=== PATIENT | male | born 1970 | race Caucasian/White ===

== ENCOUNTER 2017-07-04 19:26 | Emergency (ER) | payer OTHER ==
[2017-07-04 19:43] VITALS: BMI 41.4
--- NOTE | 2017-07-04 21:26 | PDOC ---
History of Present Illness - General History Source: Patient Exam Limitations: No Limitations - History of Present Illness Initial Comments: 07/04/17 21:47 The patient is a 46 year old male with a significant past medical history of diabetes (not compliant with medication) who presents to the ED with complaints of abdominal cramping and lightheadedness. Patient reports a sudden onset of generalized abdominal cramping and lightheadedness with blurry vision earlier today. He also reports an increase in weight lost and urinary frequency over the past several weeks. Patient reports he has not followed up with his PMD in a long time. Denies recent travel. Denies chest pain or shortness of breath. Denies nausea, vomiting, or diarrhea. Denies dysuria or hematuria. Denies any other symptoms. <Prashant Wylie - Last Filed: 07/05/17 05:58> - General History Source: Patient <Khadar Christie - Last Filed: 07/05/17 19:50> - General Chief Complaint: Blood Sugar Problem Stated Complaint: BLOOD SUGAR PROBLEM Time Seen by Provider: 07/04/17 21:22 Past History <Prashant Wylie - Last Filed: 07/05/17 05:58> - Past Medical History Diabetes: Yes GI Disorders: Yes (Crohn's, colitis) - Surgical History Orthopedic Surgery: (bilateral knee laproscopy) - Psycho/Social/Smoking Cessation Hx Anxiety: No Suicidal Ideation: No Smoking History: Never smoked Have you smoked in the past 12 months: No Information on smoking cessation initiated: No Hx Alcohol Use: No Drug/Substance Use Hx: No Substance Use Type: None <Khadar Christie - Last Filed: 07/05/17 19:50> - Past Medical History Allergies/Adverse Reactions: Allergies Allergy/AdvReac Type Severity Reaction Status Date / Time No Known Allergies Allergy Verified 07/04/17 19:33 Home Medications: Ambulatory Orders Albuterol Sulfate Inhaler - [Ventolin HFA Inhaler -] 2 inh PO Q4H PRN #1 inh Review of Systems - Review of Systems Able to Perform ROS?: Yes Comments:: 07/04/17 21:48 CONSTITUTIONAL: No reported: Fever, Chills, Diaphoresis, Generalized Weakness, Malaise, Loss of Appetite HEENT: + blurry vision No reported: Rhinorrhea, Nasal Congestion, Throat Pain, Throat Swelling, Difficulty Swallowing, Mouth Swelling, Ear Pain, Eye Pain, CARDIOVASCULAR: No reported: Chest Pain, Syncope, Palpitations, Irregular Heart Rate, Lightheadedness, Peripheral Edema RESPIRATORY: No reported: Cough, Shortness of Breath, SOB with Exertion, Orthopnea, Wheezing , Stridor, Hemoptysis GASTROINTESTINAL: + abdominal pain No reported:Abdominal Distension, Nausea, Vomiting, Diarrhea, Constipation, Melena, Hematochezia GENITOURINARY: + frequency No reported: Dysuria, Urgency, Hesitancy, Flank Pain, Genital Pain MUSCULOSKELETAL: No reported: Myalgia, Arthralgia, Joint Swelling, Back pain, Neck Pain SKIN: No reported: Rash, Itching, Pallor HEMEATOLOGIC/IMMUNOLOGIC: No reported: Easy Bleeding, Easy Bruising, Lymphadenopathy, Frequent infections ENDOCRINE: + weight loss No reported: Unexplained Weight Gain, Heat Intolerance, Cold Intolerance NEUROLOGIC: + lightheadedness No reported: Headache, Focal Weakness, Paresthesias, Vertigo, Unsteady Gait, Seizure, Mental Status Changes, Incontinence PSYCHIATRIC: No reported: Anxiety, Depression All Other Systems: Reviewed and Negative <Prashant Wylie - Last Filed: 07/05/17 05:58> *Physical Exam - Vital Signs Last Vital Signs Temp Pulse Resp BP Pulse Ox 98.0 F 90 20 154/74 97 07/04/17 19:33 07/04/17 19:33 07/04/17 19:33 07/04/17 19:33 07/04/17 19:33 - Physical Exam Comments: 07/04/17 21:48 GENERAL: Well developed, well nourished. Awake and alert. No acute distress. HEENT: Normocephalic, atraumatic. PERRLA, EOMI. No conjunctival pallor. Sclera are non- icteric. Moist mucous membranes. Oropharynx is clear. NECK: Supple. Full ROM. No JVD. Carotid pulses 2+ and symmetric, without bruits. No thyromegaly. No lymphadenopathy. CARDIOVASCULAR: Regular rate and rhythm. No murmurs, rubs, or gallops. Distal pulses are 2+ and symmetric. PULMONARY: No evidence of respiratory distress. Lungs clear to auscultation bilaterally. No wheezing, rales or rhonchi. ABDOMINAL: Soft. Non-tender. Non-distended. No rebound or guarding. No organomegaly. Normoactive bowel sounds. MUSCULOSKELETAL Normal range of motion at all joints. No bony deformities or tenderness. No CVA tenderness. EXTREMITIES: No cyanosis. No clubbing. No edema. No calf tenderness. SKIN: Warm and dry. Normal capillary refill. No rashes. No jaundice. NEUROLOGICAL: Alert, awake, appropriate. Cranial nerves 2-12 intact. No deficits to light touch and temperature in face, upper extremities and lower extremities. No motor deficits in the in face, upper extremities and lower extremities. Normoreflexic in the upper and lower extremities. Normal speech. Toes are down- going bilaterally. Gait is normal without ataxia. PSYCHIATRIC: Cooperative. Good eye contact. Appropriate mood and affect. <Prashant Wylie - Last Filed: 07/05/17 05:58> - Vital Signs Last Vital Signs Temp Pulse Resp BP Pulse Ox 98.0 F 90 20 154/74 97 07/04/17 19:33 07/04/17 19:33 07/04/17 19:33 07/04/17 19:33 07/04/17 19:33 <Khadar Christie - Last Filed: 07/05/17 19:50> Heart Score/ECG Review #1 07/05/17 05:58 Vent. rate 68 bpm IL interval 142 ms QRS Duration 82 ms Normal sinus rhythm with sinus arrhythmia <Prashant Wylie - Last Filed: 07/05/17 05:58> ED Treatment Course - LABORATORY CBC & Chemistry Diagram: 07/04/17 21:30 07/04/17 21:30 <Prashant Wylie - Last Filed: 07/05/17 05:58> - LABORATORY CBC & Chemistry Diagram: 07/04/17 21:30 07/05/17 06:00 <Khadar Christie - Last Filed: 07/05/17 19:50> Medical Decision Making - Medical Decision Making 07/04/17 22:00 Head nurse approached me and informed that patient is very sad and is having suicidal thoughts. <Prashant Wylie - Last Filed: 07/05/17 05:58> - Medical Decision Making 07/05/17 05:36 Dr. Christie: The scribe's documentation has been prepared under my direction and personally reviewed by me in its entirery. I confirm that the note above accurately reflects all work, treatment, procedures, and medical decision making performed by me. It was reported earlier, that patient was having suicidal, homicidal thought. Psych consult call in the morning for evaluatio <Khadar Christie - Last Filed: 07/05/17 19:50> *DC/Admit/Observation/Transfer - Attestations Scribe Attestion: 07/04/17 21:48 Documentation prepared by Prashant Wylie, acting as medical insurance clerk for Khadar Christie MD <Prashant Wylie - Last Filed: 07/05/17 05:58> - Discharge Dispostion Admit: No <Khadar Christie - Last Filed: 07/05/17 19:50> Diagnosis at time of Disposition: Blood glucose elevated - Discharge Dispostion Disposition: HOME Condition at time of disposition: Stable - Patient Instructions Printed Discharge Instructions: DI for Hyperglycemia -- Adult Additional Instructions: Please follow up with a primary care physician within 2-3 days. Please take your diabetes medications in order to keep your blood glucose levels at lower. Please return to the emergency department if you had any chest pain, shortness of breath, weakness, dizziness, or any concerning symptoms.
[2017-07-04] MEDS ORDERED: SODIUM CHLORIDE 1,000 ML IV STA (21:27)
[2017-07-04 21:40] LABS: BASOPHIL 0.6 % (0-2.0); EOSINOPHIL 1.2 % (0-4.5); MCH 30.3 pg (25.7-33.7); MCHC 33.9 g/dl (32.0-35.9); MEAN CELL VOLUME 89.2 fl (80-96); MEAN PLT VOLUME 8.7 fl (7.5-11.1); NEUTROPHILS 54.7 % (42.8-82.8); PLATELET COUNT 273 K/MM3 (134-434); RDW 12.7 % (11.9-15.9); WHITE BLOOD COUNT 9.8 K/mm3 (4.0-10.0)
[2017-07-04 22:11] LABS: ALBUMIN 3.5 g/dl (3.4-5.0); AMYLASE 43 U/L (25-115); ANION GAP 8 (8-16); BILIRUBIN,TOTAL 1.3 mg/dL (0.2-1.0); CALCIUM 9.2 mg/dL (8.5-10.1); CO2 30 mmol/L (21-32); SGOT/AST 15 U/L (15-37); SGPT/ALT 29 U/L (12-78); TOT PROT 7.1 g/dl (6.4-8.2)
[2017-07-04 22:12] LABS: ALK PHOS 99 U/L (45-117)
[2017-07-04 22:18] LABS: GLUCOSE,RANDOM 308 mg/dL (74-106)
[2017-07-04 23:05] LABS: ACETONE SERUM NEGATIVE (NEGATIVE)
[2017-07-05 01:38] LABS: URINE APPEARANCE SLCLOUDY; URINE BILIRUBIN NEGATIVE (NEGATIVE); URINE BLOOD NEGATIVE (NEGATIVE); URINE COLOR YELLOW; URINE GLUCOSE (UA) 3+ (NEGATIVE); URINE KETONE TRACE (NEGATIVE); URINE LEUK ESTERASE TRACE (NEGATIVE); URINE NITRITE NEGATIVE (NEGATIVE); URINE PROTEIN NEGATIVE (NEGATIVE); URINE UROBILINOGEN NEGATIVE mg/dL (0.2-1.0)
[2017-07-05 01:46] LABS: URINE MARIJUANA THC NEGATIVE ng/ml (CUTOFF=50)
[2017-07-05 01:54] LABS: URINE BACTERIA FEW /hpf (NONE SEEN); URINE MUCUS RARE; URINE RBC 4 /hpf (0-3); URINE WBC 17 /hpf (3-5)
[2017-07-05] MEDS ORDERED: INSULIN REGULAR HUMAN 100 UNITS/ML *VIAL IVPUSH ONE (03:16)
[2017-07-05] MEDS ORDERED: INSULIN REGULAR HUMAN 100 UNITS/ML *VIAL ONE (03:40)
[2017-07-05 06:28] LABS: ANION GAP 7 (8-16); CALCIUM 8.5 mg/dL (8.5-10.1); CO2 30 mmol/L (21-32); CREATININE 0.7 mg/dL (0.7-1.3); GLUCOSE,RANDOM 282 mg/dL (74-106)
--- NOTE | 2017-07-05 08:40 | CON.PSY ---
Psychiatry Consult Chief Complaint: Patient vehemently denies that He wanted to kill his mom and kill himself. patient reports problems with his Fiance. No Psych history. 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 - Previous Psychiatric Treatment Outpatient: None Inpatient: None - Previous Substance Abuse Treatment Outpatient: None Inpatient: None - Allergies Allergies: Allergies Allergy/AdvReac Type Severity Reaction Status Date / Time No Known Allergies Allergy Verified 07/04/17 19:33 - Current Living Status Usual Living Arrangement: With Parent - Current Mental Status Evaluation Appearance: Well Groomed Attitude: Cooperative - Affect Affect: Full Range Appropriateness: Appropriate to Content - Mood Mood: Euthymic - Speech/Language Expressive: Coherent - Psychomotor Activity Psychomotor Activity: Normal - Thought Process Thought Process: Intact - Thought Content Hallucinations: Absent Delusions: Absent - Self Perception Self Perception: No Impairment - Cognition Attention: Alert Orientation: Time Memory, Immediate Recall: Intact Memory, Short Term: 3/3 Memory, Remote with Promptin/3 - Concentration Serial Sevens Intact: Yes Simple Calculations Intact: Yes - Abstraction Proverb Interpretation: Intact Judgement: Intact - Insight Insight: Intact - Impulse Control Impulse Control: Good Control - Suicidal Ideation Suicidal Ideation: No - Homicidal Ideation Homicidal Ideation: No Assessment/Plan 1) Patient is not suicidal or Homicidal at this time. 2) No evidence of any acute Psychiatric Disorder. 3) Discharge Patient when medically stable. 4) No Psychiatric follow up needed.
--- NOTE | 2017-07-05 09:13 | PDOC ---
*Physical Exam - Vital Signs Last Vital Signs Temp Pulse Resp BP Pulse Ox 98.3 F 67 16 110/63 97 07/05/17 03:20 07/05/17 03:20 07/05/17 03:20 07/05/17 03:20 07/05/17 07:22 ED Treatment Course - LABORATORY CBC & Chemistry Diagram: 07/04/17 21:30 07/05/17 06:00 - ADDITIONAL ORDERS Additional order review: Laboratory Results 07/05/17 07/05/17 07/05/17 06:00 03:14 01:29 Sodium 140 Potassium 4.1 Chloride 103 Carbon Dioxide 30 Anion Gap 7 L BUN 9 Creatinine 0.7 D Creat Clearance w eGFR POC Glucometer 300.41979 Random Glucose 282 H Calcium 8.5 Magnesium Total Bilirubin AST ALT Alkaline Phosphatase Total Protein Albumin Total Amylase Lipase Urine Color Urine Appearance Urine pH Urine Protein Urine Glucose (UA) Urine Ketones Urine Blood Urine Nitrite Urine Bilirubin Urine Urobilinogen Ur Leukocyte Esterase Urine RBC Urine WBC Ur Epithelial Cells Urine Bacteria Urine Mucus Opiates Screen Negative Methadone Screen Negative Barbiturate Screen Negative Phencyclidine Screen Negative Ur Amphetamines Screen Negative MDMA (Ecstasy) Screen Negative Benzodiazepines Screen Negative Cocaine Screen Positive U Marijuana (THC) Screen Negative Alcohol, Quantitative Acetone, Qual 07/05/17 07/04/17 07/04/17 01:29 22:57 21:30 Sodium 138 Potassium 4.2 Chloride 100 Carbon Dioxide 30 Anion Gap 8 BUN 9 Creatinine 1.0 Creat Clearance w eGFR > 60 POC Glucometer Random Glucose 308 H* D Calcium 9.2 Magnesium 2.0 Total Bilirubin 1.3 H D AST 15 D ALT 29 D Alkaline Phosphatase 99 D Total Protein 7.1 Albumin 3.5 Total Amylase 43 D Lipase 135 Urine Color Yellow Urine Appearance Slcloudy Urine pH 6.0 Urine Protein Negative Urine Glucose (UA) 3+ H Urine Ketones Trace H Urine Blood Negative Urine Nitrite Negative Urine Bilirubin Negative Urine Urobilinogen Negative Ur Leukocyte Esterase Trace Urine RBC 4 Urine WBC 17 Ur Epithelial Cells Rare Urine Bacteria Few Urine Mucus Rare Opiates Screen Methadone Screen Barbiturate Screen Phencyclidine Screen Ur Amphetamines Screen MDMA (Ecstasy) Screen Benzodiazepines Screen Cocaine Screen U Marijuana (THC) Screen Alcohol, Quantitative < 5.0 Acetone, Qual Negative 07/05/17 07/04/17 03:14 21:30 RBC 5.18 MCV 89.2 MCHC 33.9 RDW 12.7 MPV 8.7 Neutrophils % 54.7 Lymphocytes % 30.7 D Monocytes % 12.8 H Eosinophils % 1.2 Basophils % 0.6 POC Glucometer 300.26726 - Medications Given in the ED: ED Medications Discontinued Medications Generic Name Dose Route Start Last Admin Trade Name Ronit PRN Reason Stop Dose Admin Sodium Chloride 1,000 mls @ 1,000 mls/hr 07/04/17 21:27 07/04/17 21:28 Normal Saline - IV 07/04/17 22:26 1,000 mls/hr ASDIR STA Administration Insulin Human Regular 6 units 07/05/17 03:16 07/05/17 03:43 Novolin R Vial *For Ivpush Or Iv Drip Only* IVPUSH 07/05/17 03:17 6 unit ONCE ONE Administration Medical Decision Making - Medical Decision Making 07/05/17 09:06 Patient was signed out to me by Dr. Kennedy from the overnight shift. Briefly , the patient was evaluated yesterday for elevated blood pressure and dizziness. Was found to have a fingerstick elevated to the 300s for which he recieved insulin with subsequent fingerstick in the 200s. While in the ED overnight he reported to his nurse that he was having some suicidal and homicidal thoughts. Patient was then placed on a one-to-one awaiting psychiatry consult in the morning. This morning I spoke with who evaluated the patient. At the time of his evaluation the patient adamantly denied any suicidal or homicidal ideations. He was cleared by psychiatry. I reevaluated the patient who reported that he used cocaine yesterday in an attempt to calm himself down after an argument with his fiance. He reports that he was feeling "sad" last night but currently feels a lot better and denies any suicidal or homicidal ideation. He also denies any visual or auditory hallucinations. He's never had any history of psychiatric illness. With regards to the patient's persistently elevated blood glucose in the emergency department patient reports that he is supposed to be on metformin but has not been taking it because he has been on a diet to lose weight and does not like the way the metformin makes him feel. I urged the patient to restart the metformin at home until he follows up with a primary care physician who can provide him with alternatives including insulin if that is his preference. Patient is agreeable to this plan and will take his metformin as prescribed until he follows up with his primary care physician. I discussed the physical exam findings, ancillary test results and final diagnoses with the patient. I answered all of the patient's questions. The patient was satisfied with the care received and felt comfortable with the discharge plan and treatment plan. The patient will call a primary care physician within 24 hours to arrange follow-up and will return to the Emergency Department with any new, persistent or worsening symptoms. *DC/Admit/Observation/Transfer Diagnosis at time of Disposition: Hyperglycemia - Discharge Dispostion Disposition: HOME Condition at time of disposition: Stable Admit: No - Patient Instructions Printed Discharge Instructions: DI for Hyperglycemia -- Adult - Attestations Physician Attestion: 07/05/17 09:13 I, Dr. Cindy Le MD, attest that this document has been prepared under my direction and personally reviewed by me in its entirety. I further attest, that it accurately reflects all work, treatment, procedures and medical decision -making performed by me.
[2017-07-05 10:02] VITALS: BP 131/85; PULSE 81; TEMP 98.4
--- NOTE | 2017-07-05 16:41 | EKG ---
Test Reason : Blood Pressure : / mmHG Vent. Rate : 068 BPM Atrial Rate : 068 BPM P-R Int : 142 ms QRS Dur : 082 ms QT Int : 382 ms P-R-T Axes : 058 031 038 degrees QTc Int : 406 ms NORMAL SINUS RHYTHM WITH SINUS ARRHYTHMIA NORMAL ECG WHEN COMPARED WITH ECG OF 27-MAY-2014 12:17, NO SIGNIFICANT CHANGE WAS FOUND Confirmed by RADHA SANCHEZ MD ([id number]) on 07/05/2017 4:40:51 PM Referred By: Confirmed By:RADHA SANCHEZ MD
== END 2017-07-05 09:45 | disposition home or self-care (01) ==
LOC: JER 19:26
PROC: 3E033VG Introduction of Insulin into Peripheral Vein, Percutaneous Approach (ICD-10-PCS; principal; 2017-07-04)
PROC: 3E0337Z Introduction of Electrolytic and Water Balance Substance into Peripheral Vein, Percutaneous Approach (ICD-10-PCS; 2017-07-04)
DX: E11.65 Type 2 diabetes mellitus with hyperglycemia (principal); Z79.84 Long term (current) use of oral hypoglycemic drugs; Z91.14 Patient's other noncompliance with medication regimen; K50.90 Crohn's disease, unspecified, without complications
CPT/HCPCS: 36415; 71010-TC; 80048; 80053; 80307; 81003; 81015; 82009; 82150; 83690; 83735; 85025; 93005; 93010; 99284-25

== ENCOUNTER 2022-07-19 07:57 | Day surgery (SDC) | payer BC ==
[2022-07-13 17:12] VITALS: BMI 43.7
[2022-07-19] MEDS ORDERED: BUPIVACAINE HCL/PF 0.25% (2.5MG/ML) 10 ML VIAL ONE (09:01)
[2022-07-19] MEDS ORDERED: DEXAMETHASONE SOD PHOSPHATE 4 MG/1 ML VIAL ONE (10:17)
[2022-07-19] MEDS ORDERED: LIDOCAINE HCL 2% 100 MG/5 ML DISP.SYRIN ONE (10:17)
[2022-07-19] MEDS ORDERED: KETOROLAC TROMETHAMINE 30 MG/1 ML VIAL ONE (10:17)
[2022-07-19] MEDS ORDERED: ONDANSETRON 4 MG/2 ML VIAL ONE ×2 (10:17→12:27)
[2022-07-19] MEDS ORDERED: SUCCINYLCHOLINE CHLORIDE 200 MG/10 ML SYRINGE ONE (10:18)
[2022-07-19] MEDS ORDERED: ROCURONIUM BROMIDE 50 MG/5 ML SYRINGE ONE ×2 (10:18→11:04)
[2022-07-19] MEDS ORDERED: PROPOFOL 40 ML ONE (10:18)
[2022-07-19] MEDS ORDERED: MIDAZOLAM HCL 2 MG/2 ML SINGLE DOSE VIAL ONE (10:18)
[2022-07-19] MEDS ORDERED: HYDROmorphone HCL/PF 1 MG/ML VIAL ONE (11:22)
[2022-07-19] MEDS ORDERED: PROPOFOL 20 ML ONE (12:25)
[2022-07-19] MEDS ORDERED: GLYCOPYRROLATE 0.2 MG/1 ML VIAL ONE (12:26)
[2022-07-19] MEDS ORDERED: NEOSTIGMINE METHYLSULFATE 0.5 MG/1 ML - 10 ML MDV ONE (12:26)
[2022-07-19] MEDS ORDERED: BUPIVACAINE HCL/PF 0.25% (2.5MG/ML) 10 ML VIAL IJ ONE (12:37)
[2022-07-19] MEDS ORDERED: oxyCODONE HCL 5 MG TABLET PO PRN (12:58)
[2022-07-19] MEDS ORDERED: ONDANSETRON 4 MG/2 ML VIAL IVPUSH PRN ×2 (12:58→13:11)
[2022-07-19] MEDS ORDERED: SODIUM CHLORIDE 1,000 ML IV SCH (13:00)
[2022-07-19] MEDS ORDERED: HYDROmorphone HCL/PF 1 MG/ML VIAL IVPUSH PRN ×2 (13:11)
[2022-07-19] MEDS ORDERED: PROMETHAZINE HCL 25 MG/1 ML VIAL IVPUSH PRN (13:11)
[2022-07-19] MEDS ORDERED: ACETAMINOPHEN 1000 MG/100 ML BAG IVPB ONE (13:12)
[2022-07-19] MEDS ORDERED: LACTATED RINGERS SOLUTION 1,000 ML IV SCH (13:15)
[2022-07-19 13:45] LABS: CALCIUM 8.7 mg/dl (8.5-10); CREATININE 0.9 mg/dl (0.55-1.3); HEMATOCRIT 48.3 % (35.4-49); MCH 31.5 pg (25.7-33.7); MCHC 35.2 g/dl (32.0-35.9); MEAN CELL VOLUME 89.3 fl (80-96); MEAN PLT VOLUME 7.9 fl (7.5-11.1); PLATELET COUNT 265.2 10^3/uL (134-434); RBC 5.41 10^6/uL (4.00-5.60); RDW 14.3 % (11.9-15.9); WHITE BLOOD COUNT 14.9 10^3/uL (4.0-10.8)
[2022-07-19] MEDS ORDERED: FAMOTIDINE 20 MG PREMIXED IVPB IVPB ONE (13:46)
[2022-07-19] MEDS ORDERED: FAMOTIDINE 20 MG/50 ML IVPB 20 MG/50 ML MG IVPB SCH (14:00)
[2022-07-19 14:42] VITALS: TEMP 97.8
[2022-07-19] MEDS ORDERED: Insulin (LOG) Aspart 100 UNITS/ML VIAL SQ ONE (15:36)
[2022-07-19] MEDS ORDERED: INSULIN (NOVOLOG) ASPART 100 UNITS/ML 10ML VIAL SQ ONE (16:00)
[2022-07-19] MEDS ORDERED: oxyCODONE HCL 5 MG TABLET PO ONE (16:25)
[2022-07-19] MEDS ORDERED: oxyCODONE HCL 5 MG TABLET ONE (16:26)
[2022-07-19 16:42] VITALS: RESP 18
[2022-07-19] MEDS ORDERED: INSULIN (NOVOLOG) ASPART 100 UNITS/ML 10ML VIAL NR ONE (17:40)
[2022-07-19] MEDS ORDERED: INSULIN REGULAR HUMAN 100 UNITS/ML *VIAL IVPUSH ONE (17:41)
[2022-07-19 18:33] VITALS: BP 114/82; PULSE 98
== END 2022-07-19 19:40 | disposition home or self-care (01) ==
LOC: FASUSAT 07:57
PROVIDERS: ATTEND Surgery
PROC: 0DV64CZ Restriction of Stomach with Extraluminal Device, Percutaneous Endoscopic Approach (ICD-10-PCS; principal; 2022-07-19 11:03)
DX: E66.01 Morbid (severe) obesity due to excess calories (principal); E11.9 Type 2 diabetes mellitus without complications; Z68.41 Body mass index [BMI] 40.0-44.9, adult
CPT/HCPCS: 43770; C1889; 36415; 74240-TC-FY; 80048; 82947; 82962; 85027; 86850; 86900; 86901; 94760

== ENCOUNTER 2023-07-18 10:41 | Emergency (ER) | payer BC ==
[2023-07-18 10:52] VITALS: TEMP 98.1; BMI 41.1
[2023-07-18] MEDS ORDERED: FAMOTIDINE 20 MG/50 ML IVPB 20 MG/50 ML MG IVPB ONE ×2 (11:27→11:34)
[2023-07-18] MEDS ORDERED: ACETAMINOPHEN 1000 MG/100 ML BAG IVPB ONE ×2 (11:27→19:32)
[2023-07-18] MEDS ORDERED: SODIUM CHLORIDE 1,000 ML IV STA ×2 (11:27→17:46)
[2023-07-18] MEDS ORDERED: ONDANSETRON 4 MG/2 ML VIAL IVPUSH ONE (11:27)
[2023-07-18] MEDS ORDERED: ACETAMINOPHEN INJECTION 100 ML IVPB ONE ×2 (11:33→19:37)
[2023-07-18] MEDS ORDERED: ONDANSETRON 4 MG/2 ML VIAL ONE (11:34)
[2023-07-18 12:53] LABS: BASO % 0.6 % (0-2.0); EOS % 0.4 % (0-4.5); HEMOGLOBIN 16.6 GM/dL (11.7-16.9); LYMPH % 11.1 % (8-40); MCH 29.9 pg (25.7-33.7); MCHC 33.3 g/dl (32.0-35.9); MEAN CELL VOLUME 89.9 fl (80-96); MEAN PLT VOLUME 8.1 fl (7.5-11.1); MONO % 9.4 % (3.8-10.2); NEUT % 78.5 % (42.8-82.8); PLATELET COUNT 340 10^3/uL (134-434); RBC 5.56 M/mm3 (4.00-5.60); RDW 13.8 % (11.9-15.9)
[2023-07-18 13:04] LABS: INR 1.08 (0.83-1.09); PROTHROMBIN TIME (PATIENT) 12.5 SEC (9.7-13.0)
[2023-07-18 13:11] LABS: POTASSIUM 4.3 mmol/L (3.5-5.1)
[2023-07-18 13:12] LABS: CALCIUM 9.3 mg/dL (8.5-10.1)
[2023-07-18 13:13] LABS: ALBUMIN 3.6 g/dl (3.4-5.0)
[2023-07-18 13:16] LABS: CREATININE 0.9 mg/dL (0.55-1.3)
[2023-07-18 13:18] LABS: BILIRUBIN,TOTAL 1.1 mg/dL (0.2-1); TOT PROT 7.3 g/dl (6.4-8.2)
[2023-07-18 15:02] LABS: PH,URINE 6.5 (5.0-8.0); URINE APPEARANCE CLEAR; URINE BILIRUBIN NEGATIVE (NEGATIVE); URINE COLOR YELLOW; URINE GLUCOSE (UA) 3+ (NEGATIVE); URINE KETONE 4+ (NEGATIVE); URINE LEUK ESTERASE NEGATIVE (NEGATIVE); URINE NITRITE NEGATIVE (NEGATIVE); URINE PROTEIN NEGATIVE (NEGATIVE)
[2023-07-18 17:46] VITALS: BP 126/74; PULSE 74; RESP 14
== END 2023-07-18 20:20 | disposition home or self-care (01) ==
LOC: JER 10:41
PROC: 3E033GC Introduction of Other Therapeutic Substance into Peripheral Vein, Percutaneous Approach (ICD-10-PCS; principal; 2023-07-18)
PROC: 3E033NZ Introduction of Analgesics, Hypnotics, Sedatives into Peripheral Vein, Percutaneous Approach (ICD-10-PCS; 2023-07-18)
PROC: 3E033GC Introduction of Other Therapeutic Substance into Peripheral Vein, Percutaneous Approach (ICD-10-PCS; 2023-07-18)
PROC: 3E0337Z Introduction of Electrolytic and Water Balance Substance into Peripheral Vein, Percutaneous Approach (ICD-10-PCS; 2023-07-18)
DX: R10.84 Generalized abdominal pain (principal); R11.0 Nausea; N40.0 Benign prostatic hyperplasia without lower urinary tract symptoms
CPT/HCPCS: 36415; 74177-TC; 76705-TC; 80053; 81003; 84484; 85025; 85610; 85730; 87086; 93005; 93010; 99285-25; Q9967

== ENCOUNTER 2023-09-22 09:28 | Emergency (ER) | payer BC, OTHER ==
[2023-09-22 09:43] VITALS: BP 129/80; PULSE 72; RESP 18; TEMP 98.9; BMI 39.1
[2023-09-22] MEDS ORDERED: LIDOCAINE 4% PATCH TP ONE ×2 (11:04→11:09)
[2023-09-22] MEDS ORDERED: IBUPROFEN 600 MG TABLET (FP) PO ONE ×2 (11:04→11:09)
[2023-09-22] MEDS ORDERED: ACETAMINOPHEN 500 MG TABLET (FP) PO ONE (11:04)
[2023-09-22] MEDS ORDERED: ACETAMINOPHEN 500 MG TABLET (FP) ONE (11:09)
[2023-09-22] MEDS ORDERED: LIDOCAINE PATCH REMOVAL MC ONE (22:00)
== END 2023-09-22 11:36 | disposition home or self-care (01) ==
LOC: JER 09:28
DX: R51.9 Headache, unspecified (principal); M79.10 Myalgia, unspecified site; H53.8 Other visual disturbances; R42 Dizziness and giddiness; M54.2 Cervicalgia; M54.9 Dorsalgia, unspecified; V49.40XA Driver injured in collision with unspecified motor vehicles in traffic accident, initial encounter; Y92.410 Unspecified street and highway as the place of occurrence of the external cause
CPT/HCPCS: 70450-TC; 72125-TC; 99284-25

== ENCOUNTER 2023-10-01 07:48 | Emergency (ER) | payer BC, OTHER ==
[2023-10-01 08:03] VITALS: BP 154/96; PULSE 88; RESP 18; TEMP 98; BMI 38.4
[2023-10-01] MEDS ORDERED: ASPIRIN 81 MG CHEWABLE TABLETS PO ONE (08:22)
[2023-10-01] MEDS ORDERED: ACETAMINOPHEN 1000 MG/100 ML BAG IVPB ONE (08:22)
[2023-10-01] MEDS ORDERED: ASPIRIN 81 MG CHEWABLE TABLETS ONE (08:26)
[2023-10-01] MEDS ORDERED: ACETAMINOPHEN INJECTION 100 ML IVPB ONE (08:27)
[2023-10-01 09:02] LABS: BASO % 0.8 % (0-2.0); EOS % 0.6 % (0-4.5); HEMATOCRIT 53.8 % (35.4-49); HEMOGLOBIN 18.2 GM/dL (11.7-16.9); LYMPH % 13.7 % (8-40); MCHC 33.8 g/dl (32.0-35.9); MEAN CELL VOLUME 85.8 fl (80-96); MEAN PLT VOLUME 7.9 fl (7.5-11.1); MONO % 11.2 % (3.8-10.2); NEUT % 73.7 % (42.8-82.8); PLATELET COUNT 308 10^3/uL (134-434); RBC 6.27 M/mm3 (4.00-5.60); RDW 14.4 % (11.9-15.9); WHITE BLOOD COUNT 9.7 K/mm3 (4.0-10.0)
[2023-10-01 09:09] LABS: POTASSIUM 4.3 mmol/L (3.5-5.1)
[2023-10-01 09:10] LABS: INR 1.14 (0.83-1.09); PROTHROMBIN TIME (PATIENT) 13.2 SEC (9.7-13.0)
[2023-10-01 09:11] LABS: BLOOD UREA NITROGEN 10.2 mg/dL (7-18); CALCIUM 9.1 mg/dL (8.5-10.1)
[2023-10-01 09:13] LABS: ACTIVATED PTT 32.7 SECONDS (25.2-36.5)
[2023-10-01 09:14] LABS: CREATININE 0.9 mg/dL (0.55-1.3)
[2023-10-01 09:16] LABS: BILIRUBIN,TOTAL 2.7 mg/dL (0.2-1); TOT PROT 7.7 g/dl (6.4-8.2)
[2023-10-01] MEDS ORDERED: KETOROLAC TROMETHAMINE 15 MG/ML VIAL IVPUSH ONE (11:23)
[2023-10-01] MEDS ORDERED: KETOROLAC TROMETHAMINE 15 MG/ML VIAL ONE (11:50)
[2023-10-01 12:08] LABS: EPI CELLS 6 /uL (0-25.1); HYALINE CASTS 1 /uL (0-3.1); PH,URINE 5.5 (5.0-8.0); URINE APPEARANCE CLEAR; URINE BACTERIA 7 /uL (0-1359); URINE BILIRUBIN NEGATIVE (NEGATIVE); URINE COLOR YELLOW; URINE GLUCOSE (UA) NEGATIVE (NEGATIVE); URINE KETONE TRACE (NEGATIVE); URINE LEUK ESTERASE TRACE (NEGATIVE); URINE NITRITE NEGATIVE (NEGATIVE); URINE PROTEIN NEGATIVE (NEGATIVE); URINE RBC 17 /uL (0-23.9); URINE UROBILINOGEN 0.2 mg/dL (0.2-1.0); URINE WBC 21 /uL (0-25.8)
== END 2023-10-01 13:08 | disposition home or self-care (01) ==
LOC: JER 07:48
PROC: 3E033NZ Introduction of Analgesics, Hypnotics, Sedatives into Peripheral Vein, Percutaneous Approach (ICD-10-PCS; principal; 2023-10-01)
PROC: 3E0333Z Introduction of Anti-inflammatory into Peripheral Vein, Percutaneous Approach (ICD-10-PCS; 2023-10-01)
DX: R07.9 Chest pain, unspecified (principal); M54.9 Dorsalgia, unspecified; R20.2 Paresthesia of skin; Z87.828 Personal history of other (healed) physical injury and trauma
CPT/HCPCS: 36415; 71045-TC-FY; 80053; 81003; 84484; 85025; 85610; 85730; 87086; 93005; 93010; 99285-25

== ENCOUNTER 2024-02-19 17:55 | Emergency (ER) | payer BC, OTHER ==
[2024-02-19 18:16] VITALS: TEMP 98.3; BMI 37.2
[2024-02-19] MEDS ORDERED: ACETAMINOPHEN INJECTION 100 ML IVPB ONE (19:30)
[2024-02-19] MEDS: ACETAMINOPHEN 1000 MG/100 ML BAG IVPB ONE (19:41)
[2024-02-19 19:53] LABS: BASO % 0.4 % (0-2.0); EOS % 0.4 % (0-4.5); HEMATOCRIT 46.1 % (35.4-49); HEMOGLOBIN 15.5 GM/dL (11.7-16.9); LYMPH % 12.6 % (8-40); MCH 30.7 pg (25.7-33.7); MCHC 33.6 g/dl (32.0-35.9); MEAN CELL VOLUME 91.2 fl (80-96); MEAN PLT VOLUME 7.8 fl (7.5-11.1); MONO % 11.3 % (3.8-10.2); NEUT % 75.3 % (42.8-82.8); PLATELET COUNT 278 10^3/uL (134-434); RBC 5.06 M/mm3 (4.00-5.60); RDW 13.3 % (11.9-15.9); WHITE BLOOD COUNT 11.5 K/mm3 (4.0-10.0)
[2024-02-19 20:00] LABS: INR 1.11 (0.83-1.09); PROTHROMBIN TIME (PATIENT) 12.9 SEC (9.7-13.0)
[2024-02-19 20:02] LABS: ACTIVATED PTT 29.4 SECONDS (25.2-36.5)
[2024-02-19 20:12] LABS: POTASSIUM 3.7 mmol/L (3.5-5.1)
[2024-02-19 20:13] LABS: ALBUMIN 3.5 g/dl (3.4-5.0); BLOOD UREA NITROGEN 14.6 mg/dL (7-18); CALCIUM 8.7 mg/dL (8.5-10.1)
[2024-02-19 20:18] LABS: BILIRUBIN,TOTAL 1.2 mg/dL (0.2-1); CREATININE 0.8 mg/dL (0.55-1.3); TOT PROT 6.9 g/dl (6.4-8.2)
[2024-02-19 22:25] VITALS: BP 125/72; PULSE 70; RESP 16
== END 2024-02-19 22:27 | disposition home or self-care (01) ==
LOC: JER 17:55
PROC: 3E033NZ Introduction of Analgesics, Hypnotics, Sedatives into Peripheral Vein, Percutaneous Approach (ICD-10-PCS; principal; 2024-02-19)
DX: R07.89 Other chest pain (principal); R06.02 Shortness of breath; R42 Dizziness and giddiness
CPT/HCPCS: 36415; 71046-TC-FY; 80053; 84484; 85025; 85379; 85610; 85730; 93005; 93010; 99285-25; J0131

== ENCOUNTER 2024-06-15 08:52 | Emergency (ER) | payer BC, OTHER ==
[2024-06-15 08:56] VITALS: BMI 35.9
[2024-06-15] MEDS ORDERED: FAMOTIDINE 20 MG/50 ML IVPB 20 MG/50 ML MG IVPB ONE (10:33)
[2024-06-15] MEDS ORDERED: KETOROLAC TROMETHAMINE 30 MG/1 ML VIAL ONE (10:33)
[2024-06-15 10:44] LABS: BASO % 0.6 % (0-2.0); EOS % 0.4 % (0-4.5); HEMATOCRIT 50.2 % (35.4-49); HEMOGLOBIN 17.5 GM/dL (11.7-16.9); LYMPH % 18.5 % (8-40); MCH 31.6 pg (25.7-33.7); MCHC 34.9 g/dl (32.0-35.9); MEAN CELL VOLUME 90.5 fl (80-96); MEAN PLT VOLUME 7.5 fl (7.5-11.1); MONO % 9.2 % (3.8-10.2); NEUT % 71.3 % (42.8-82.8); PLATELET COUNT 300 10^3/uL (134-434); RBC 5.55 M/mm3 (4.00-5.60); RDW 13.1 % (11.9-15.9); WHITE BLOOD COUNT 9.5 K/mm3 (4.0-10.0)
[2024-06-15] MEDS: KETOROLAC TROMETHAMINE 30 MG/1 ML VIAL IVPUSH ONE (11:00)
[2024-06-15] MEDS: FAMOTIDINE 20 MG/50 ML IVPB 20 MG/50 ML MG IVPB ONE (11:00)
[2024-06-15] MEDS: SODIUM CHLORIDE 0.9% 500 ML INFUS.BAG IV ONE (11:00)
[2024-06-15 11:12] LABS: POTASSIUM 4.3 mmol/L (3.5-5.1)
[2024-06-15 11:13] LABS: CALCIUM 9.9 mg/dL (8.5-10.1)
[2024-06-15 11:14] LABS: ALBUMIN 4.1 g/dl (3.4-5.0); BLOOD UREA NITROGEN 13.4 mg/dL (7-18)
[2024-06-15 11:17] LABS: CREATININE 0.9 mg/dL (0.55-1.3)
[2024-06-15 11:19] LABS: BILIRUBIN,TOTAL 1.4 mg/dL (0.2-1)
[2024-06-15 11:41] LABS: PH,URINE 5.5 (5.0-8.0); URINE APPEARANCE CLEAR; URINE BILIRUBIN NEGATIVE (NEGATIVE); URINE COLOR YELLOW; URINE GLUCOSE (UA) NEGATIVE (NEGATIVE); URINE KETONE TRACE (NEGATIVE); URINE LEUK ESTERASE NEGATIVE (NEGATIVE); URINE NITRITE NEGATIVE (NEGATIVE); URINE PROTEIN NEGATIVE (NEGATIVE); URINE UROBILINOGEN 0.2 mg/dL (0.2-1.0)
[2024-06-15] MEDS ORDERED: morphine SULFATE 4 MG/ML VIAL ONE (11:45)
[2024-06-15] MEDS: morphine CARPU-JECT 4 MG/1 ML DISP.SYRIN IVPUSH ONE (11:53)
[2024-06-15 16:50] VITALS: BP 136/76; PULSE 62; RESP 20; TEMP 98
== END 2024-06-15 16:57 | disposition home or self-care (01) ==
LOC: JER 08:52
DX: R10.32 Left lower quadrant pain (principal); R19.7 Diarrhea, unspecified; R11.0 Nausea
CPT/HCPCS: 36415; 74177-TC; 80053; 81003; 83690; 85025; 99285-25; Q9967